=== PATIENT | male | born 1945 | race Caucasian/White ===

== ENCOUNTER → 2016-09-30 | Outpatient (CLI) | payer BC ==
[~2016-09-30] MED LIST: ACET-1138 PO; ASPEC81 PO; ATV1 PO; CLB200 PO; CYCL0.052 OP; ENAL10TA88 PO; KPP/750 PO; LACO100T PO; MULTTAB PO; OXYSR10 PO; POLY1SOL6 OP; RXC5 PO; SENNTAB23 PO; SIMV20TA2 PO; WHEAPOW13 PO
--- NOTE | 2016-09-30 16:26 | DIAGNOSTIC IMAGING REPORT ---
TWO VIEW CHEST CLINICAL HISTORY: Cough and fever. FINDINGS: PA and lateral chest radiographs are compared to study dated 04/17/2015. The cardiomediastinal silhouette is unremarkable. The lungs and pleural spaces are clear. There is no pneumothorax. The bony thorax appears intact. IMPRESSION: No active disease in the chest. Electronically signed by: Maxim Huerta M.D. 09/30/2016 4:25 PM Dictated Date/Time: 09/30/2016 4:24 PM
== END | disposition home or self-care (01) ==
LOC: C.RAD 16:09
PROVIDERS: ATTEND Physician Assistant
DX: R50.9 Fever, unspecified (principal)

== ENCOUNTER 2017-07-09 04:37 | Inpatient (IN) | payer BC, OTHER ==
[~2017-07-09] VITALS: Ht 170.2 cm; Wt 104.9 kg
[2017-07-09] MEDS ORDERED: SODIUM CHLORIDE 0.9% 1000ML 1,000 ML IV STA (05:03)
[2017-07-09 05:33] LABS: BASO % 0.1 %; BASO ABS # 0.01 K/uL (0-0.2); EOS ABS # 0.08 K/uL (0-0.5); HEMATOCRIT 43.5 % (42-52); HEMOGLOBIN 14.7 g/dL (14.0-18.0); IG# 0.01 K/uL (0.00-0.02); LYMPH % 9.3 %; LYMPH ABS # 0.77 K/uL (1.2-3.4); MEAN CELL VOLUME 88.8 fL (80-100); MEAN CORPUSCULAR HGB CONC 33.8 g/dl (32-36); MEAN PLATELET VOLUME 10.4 fL (7.4-10.4); MONO % 8.7 %; MONO ABS # 0.72 K/uL (0.11-0.59); NEUT % 80.8 %; NEUT ABS # 6.73 K/uL (1.4-6.5); PLATELET COUNT 136 K/uL (130-400); RED CELL DISTRIBUTION WIDTH SD 42.2 fL (36.4-46.3); WHITE BLOOD COUNT 8.32 K/uL (4.8-10.8)
[2017-07-09 05:37] LABS: INFLUENZA B ANTIGEN Neg for Influ B (NEG)
[2017-07-09] MEDS ORDERED: OSELTAMIVIR PHOSPHATE 75 MG CAP PO STA (05:39)
[2017-07-09] MEDS ORDERED: ALBUT/IPRATROP 3MG/0.5MG NEB 3 ML VIAL INH STA (05:39)
[2017-07-09 05:42] LABS: PTT PATIENT 29.5 SECONDS (21.0-31.0)
[2017-07-09 05:51] LABS: ALBUMIN 3.4 gm/dl (3.4-5.0); ALT/SGPT 18 U/L (12-78); AST/SGOT 21 U/L (15-37); BLOOD UREA NITROGEN 14 mg/dl (7-18); CALCIUM 8.5 mg/dl (8.5-10.1); CARBON DIOXIDE 28 mmol/L (21-32); CREATININE 0.94 mg/dl (0.60-1.40); GLUCOSE 111 mg/dl (70-99); LIPASE 130 U/L (73-393); POTASSIUM 3.7 mmol/L (3.5-5.1); SODIUM 139 mmol/L (136-145)
[2017-07-09] MEDS ORDERED: ASPI81TA28 PO (05:53)
[2017-07-09] MEDS ORDERED: CLON1TAB3 PO (05:53)
[2017-07-09] MEDS ORDERED: ENAL1TAB31 PO (05:54)
[2017-07-09] MEDS ORDERED: MULT-514 PO (05:55)
[2017-07-09] MEDS ORDERED: OMEG5CAP PO (05:55)
[2017-07-09] MEDS ORDERED: ATV/1 PO (05:55)
[2017-07-09] MEDS ORDERED: ESLI1TAB3 PO (05:56)
[2017-07-09 05:59] LABS: ALKALINE PHOSPHATASE 90 U/L (45-117); CKMB 0.7 ng/ml (0.5-3.6); TOTAL PROTEIN 7.1 gm/dl (6.4-8.2)
[2017-07-09] MEDS ORDERED: ACETAMINOPHEN 325 MG TAB PO PRN (06:00)
[2017-07-09] MEDS ORDERED: ONDANSETRON INJ 2 MG/ML 2 ML VIAL IV PRN (06:00)
[2017-07-09] MEDS ORDERED: LORAZEPAM 1 MG TAB PO PRN ×2 (06:00→18:30)
[2017-07-09] MEDS ORDERED: POLYETHYLENE (MIRALAX) 17 GM PACK PO PRN (06:00)
[2017-07-09] MEDS ORDERED: MAGNESIUM HYDROXIDE SUSP 30 ML UDC PO PRN (06:00)
[2017-07-09] MEDS ORDERED: ALUMINUM/MAGNESIUM/SIMETH (MAALOX MAX) 30 ML UDC PO PRN (06:00)
--- NOTE | 2017-07-09 06:10 | History and Physical ---
History & Physical Date & Time of Service: Jul 09, 2017 at 06:00 Chief Complaint: Cough,Fever Primary Care Physician: Pam Fernandez PA-C History of Present Illness Source: patient, hospital records 71 y/o M Hx HTN, HPL, OA, seizure disorder. Pt has had a fever and cough x 3 days. He had been exposed to the flu through a grandchild. He presented as he developed SOB. The pt was slightly hypoxic on arrival to the ER. Labs are notable for a (+) rapid flu. He denies CP, N/V, diarrhea or dysuria. Past Medical/Surgical History 1) HTN 2) HPL 3) Seizure disorder with aura 4) OA 5) TKR 6) Total shoulder replacement Family History Diabetes mellitus FHx: coronary artery disease Social History Smoking Status: Never Smoker Marital Status: Housing status: lives with family Occupational Status: employed Immunizations History of Influenza Vaccine: N/A Influenza Vaccine Date: Feb 22, 2010 History of Tetanus Vaccine?: Yes History of Pneumococcal: Yes Pneumococcal Date: Feb 23, 2009 History of Hepatitis B Vaccine: No Multi-Drug Resistant Organisms History of MDRO: Yes Type of MDRO: MRSA Allergies Coded Allergies: Phenytoin (Verified Allergy, Unknown, DRUG INDUCED HEPATITIS, 07/09/17) Valproic Acid (Verified Adverse Reaction, Severe, ELEVATED LIVER ENZYMES, 07/09/17) Home Medications Scheduled Aspirin (Aspirin Ec), 81 MG PO QPM Clonazepam (Klonopin), 0.5 MG PO BID Enalapril Maleate (Vasotec), 40 MG PO DAILY Eslicarbazepine Acetate (Aptiom), 600 MG PO DAILY Lacosamide (Vimpat), 300 MG PO BID Levetiracetam (Keppra), 2,250 MG PO BID Multiple Vitamins W/ Calcium (Multi-Day), 1 TAB PO DAILY [place]-3 Fatty Acids (Fish Oil 1200 mg), 1,200 MG PO DAILY Polyethylene Glycol-Propylene (Systane Ultra), 1 DROPS OP PRN Simvastatin (Zocor), 20 MG PO QPM Scheduled PRN Lorazepam (Ativan), 1 MG PO UD PRN for SEIZURE AURA Review of Systems Constitutional: + fever, + chills, + weakness, + fatigue Eyes: No worsening of vision ENT: No hearing loss, No unusual epistaxis, No nasal symptoms Respiratory: + cough, + sputum, + shortness of breath Cardiovascular: No chest pain, No orthopnea, No PND Abdomen: No pain, No nausea, No vomiting Musculoskeletal: No joint pain Genitourinary - Male: No hematuria, No dysuria Neurologic: No memory loss, No paralysis, No weakness Psychiatric: No depression symptoms Endocrine: + fatigue Hematologic / Lymphatic: No abnormal bleeding/bruising Integumentary: No rash Allergic / Immunologic: No environmental allergies Physical Exam Vital Signs Date Time Temp Pulse Resp B/P (MAP) Pulse Ox O2 Delivery O2 Flow Rate FiO2 07/09/17 05:10 96 Nasal Cannula 2.0 07/09/17 04:59 78 24 133/69 96 Nasal Cannula 2.0 07/09/17 04:58 77 07/09/17 04:57 Nasal Cannula 2.0 07/09/17 04:55 90 Room Air 07/09/17 04:40 37.9 82 20 131/68 88 Room Air General Appearance: WD/WN, no apparent distress Head: normocephalic Eyes: normal inspection ENT: normal ENT inspection Neck: supple, no JVD Respiratory/Chest: chest non-tender, lungs clear, normal breath sounds Cardiovascular: regular rate, rhythm, no edema, no gallop Abdomen/GI: normal bowel sounds, non tender, soft Back: normal inspection, no CVA tenderness Extremities/Musculoskelatal: normal inspection Neurologic/Psych: cold patcher II-XII nml as tested, no motor/sensory deficits, alert, oriented x 3 Skin: normal color Diagnostics Laboratory Results Results Past 24 Hours Test 07/09/17 05:00 07/09/17 05:10 07/09/17 05:15 07/09/17 05:17 Range/Units Influenza Type A Antigen POS for Influ A NEG Influenza Type B Antigen Neg for Influ B NEG White Blood Count 8.32 4.8-10.8 K/uL Red Blood Count 4.90 4.7-6.1 M/uL Hemoglobin 14.7 14.0-18.0 g/dL Hematocrit 43.5 42-52 % Mean Corpuscular Volume 88.8 80-100 fL Mean Corpuscular Hemoglobin 30.0 25-34 pg Mean Corpuscular Hemoglobin Concent 33.8 32-36 g/dl Platelet Count 136 130-400 K/uL Mean Platelet Volume 10.4 7.4-10.4 fL Neutrophils (%) (Auto) 80.8 % Lymphocytes (%) (Auto) 9.3 % Monocytes (%) (Auto) 8.7 % Eosinophils (%) (Auto) 1.0 % Basophils (%) (Auto) 0.1 % Neutrophils # (Auto) 6.73 1.4-6.5 K/uL Lymphocytes # (Auto) 0.77 1.2-3.4 K/uL Monocytes # (Auto) 0.72 0.11-0.59 K/uL Eosinophils # (Auto) 0.08 0-0.5 K/uL Basophils # (Auto) 0.01 0-0.2 K/uL RDW Standard Deviation 42.2 36.4-46.3 fL RDW Coefficient of Variation 13.0 11.5-14.5 % Immature Granulocyte % (Auto) 0.1 % Immature Granulocyte # (Auto) 0.01 0.00-0.02 K/uL Prothrombin Time 11.0 9.0-12.0 SECONDS Prothromb Time International Ratio 1.0 0.9-1.1 Activated Partial Thromboplast Time 29.5 21.0-31.0 SECONDS Partial Thromboplastin Ratio 1.1 Sodium Level 139 136-145 mmol/L Potassium Level 3.7 3.5-5.1 mmol/L Chloride Level 103 98-107 mmol/L Carbon Dioxide Level 28 21-32 mmol/L Anion Gap 8.0 3-11 mmol/L Blood Urea Nitrogen 14 7-18 mg/dl Creatinine 0.94 0.60-1.40 mg/dl Estimated GFR () 94.8 Estimated GFR (Non- 81.8 BUN/Creatinine Ratio 14.5 10-20 Random Glucose 111 70-99 mg/dl Calcium Level 8.5 8.5-10.1 mg/dl Magnesium Level 1.9 1.8-2.4 mg/dl Total Bilirubin 0.4 0.2-1 mg/dl Direct Bilirubin < 0.1 0-0.2 mg/dl Aspartate Amino Transf (AST/SGOT) 21 15-37 U/L Alanine Aminotransferase (ALT/SGPT) 18 12-78 U/L Alkaline Phosphatase 90 45-117 U/L Total Creatine Kinase 144 39-308 U/L Creatine Kinase MB 0.7 0.5-3.6 ng/ml Creatine Kinase MB Ratio 0.5 0-3.0 Troponin I < 0.015 0-0.045 ng/ml Total Protein 7.1 6.4-8.2 gm/dl Albumin 3.4 3.4-5.0 gm/dl Lipase 130 73-393 U/L Thyroid Stimulating Hormone (TSH) 1.010 0.300-4.500 uIu/ml Urine Color DK YELLOW Urine Appearance CLEAR CLEAR Urine pH 5.0 4.5-7.5 Urine Specific [place] 1.029 1.000-1.030 Urine Protein TRACE NEG Urine Glucose (UA) NEG NEG Urine Ketones TRACE NEG Urine Occult Blood NEG NEG Urine Nitrite NEG NEG Urine Bilirubin NEG NEG Urine Urobilinogen NEG NEG Urine Leukocyte Esterase NEG NEG Urine WBC (Auto) 1-5 0-5 /hpf Urine RBC (Auto) 0-4 0-4 /hpf Urine Hyaline Casts (Auto) 1-5 0-5 /lpf Urine Epithelial Cells (Auto) 5-10 0-5 /lpf Urine Bacteria (Auto) NEG NEG Bedside Lactic Acid Venous 0.66 0.90-1.70 mmol/L Microbiology Results 07/09/17 Blood Culture, Received Pending 07/09/17 Blood Culture, Received Pending 07/09/17 Urine Culture, Received Pending CXR normal Impression Assessment and Plan 71 y/o M Hx HTN, HPL, OA, seizure disorder. Pt has had a fever and cough x 3 days. He had been exposed to the flu through a grandchild. He presented as he developed SOB. The pt was slightly hypoxic on arrival to the ER. Labs are notable for a (+) rapid flu. He denies CP, N/V, diarrhea or dysuria. 1) Influenza - provided with Tamiflu, Nebs, 02 protocol, IVF. 2) HTN - cont Vasotec 3) HPL - cont Statin 4) Seizures - cont Vimpat, Etiom - the pt takes Lorazepam within 5 min of recognizing an aura Full code - Heparin prophylaxis Total time for this admit including review of labs, meds, records, imaging - discussion with pt and ER attending - 33 min Level of Care Med/Surg Resuscitation Status FULL RESUSCITATION VTE Prophylaxis VTE Risk Assessment Done? Y/N: Yes Risk Level: Moderate Given or contraindicated: Unfractionated heparin SQ
[2017-07-09] MEDS ORDERED: ARTIFICIAL TEARS OP SOLN OPB PRN (06:15)
[2017-07-09 06:30] VITALS: BP 121/70; PULSE 87; TEMP 37.1; O2SAT 95; Ht 170.2 cm; Wt 104.9 kg
--- NOTE | 2017-07-09 06:44 | EMERGENCY ROOM VISIT NOTE ---
History Report prepared by Filiberto: Shaniqua Vaz Under the Supervision of: Dr. Chema Lucero M.D. First contact with patient: 04:46 Chief Complaint: COUGH Stated Complaint: COUGH,FEVER History of Present Illness The patient is a 71 year old male who presents to the Emergency Room with complaints of persistent fevers that began 3 days ago, noting that he did not have any fevers all day yesterday. The patient patient states he has a persistent cough and denies wearing oxygen at home. His notes that the patient took Tylenol about 2 hours ago, which did not help relieve his symptoms. He notes that his grandchildren currently have the flu. The patient has a history of seizures and pneumonia. Pt denies LOC, headache, chills, diaphoresis, visual changes, neck pain, chest pain, nausea, vomiting, abdominal pain, back pain, melena, hematochezia, urinary symptoms, numbness, weakness, lymphadenopathy, rash, or other complaints. Source of History: patient, spouse/significant other () Onset: 3 days ago Position: other (global) Quality: other (fever) Timing: other (persistent) Associated Symptoms: + cough Review of Systems See HPI for pertinent positives and negatives. A total of ten systems were reviewed and were otherwise negative. Past Medical & Surgical Medical Problems: (1) encephalomalacia (2) Hyperlipidemia Nec/Nos (3) Hypertension Nos (4) Hypoxemia (5) Influenza A (6) Knee pain (7) Osteoarthros Nos-Unspec (8) Right knee DJD (9) Seizure Surgical Problems: (1) Knee Joint Replacement Status (2) Shoulder Joint Replacement Status Social History Problems: (1) S/P TKR (total knee replacement) Family History Diabetes mellitus FHx: coronary artery disease Social History Smoking Status: Never Smoker Marital Status: Housing Status: lives with family Occupation Status: employed Current/Historical Medications Scheduled Aspirin (Aspirin Ec), 81 MG PO QPM Clonazepam (Klonopin), 0.5 MG PO BID Enalapril Maleate (Vasotec), 40 MG PO DAILY Eslicarbazepine Acetate (Aptiom), 600 MG PO DAILY Lacosamide (Vimpat), 300 MG PO BID Levetiracetam (Keppra), 2,250 MG PO BID Multiple Vitamins W/ Calcium (Multi-Day), 1 TAB PO DAILY [place]-3 Fatty Acids (Fish Oil 1200 mg), 1,200 MG PO DAILY Polyethylene Glycol-Propylene (Systane Ultra), 1 DROPS OP PRN Simvastatin (Zocor), 20 MG PO QPM Scheduled PRN Lorazepam (Ativan), 1 MG PO UD PRN for SEIZURE AURA Allergies Coded Allergies: Phenytoin (Verified Allergy, Unknown, DRUG INDUCED HEPATITIS, 07/09/17) Valproic Acid (Verified Adverse Reaction, Severe, ELEVATED LIVER ENZYMES, 07/09/17) Physical Exam Vital Signs Date Time Temp Pulse Resp B/P (MAP) Pulse Ox O2 Delivery O2 Flow Rate FiO2 07/09/17 06:08 37.9 75 20 123/72 96 Nasal Cannula 2.0 07/09/17 05:10 96 Nasal Cannula 2.0 07/09/17 04:59 78 24 133/69 96 Nasal Cannula 2.0 07/09/17 04:58 77 07/09/17 04:57 Nasal Cannula 2.0 07/09/17 04:55 90 Room Air 07/09/17 04:40 37.9 82 20 131/68 88 Room Air Physical Exam GENERAL: Awake, alert, mildly ill-appearing, in no distress HENT: Normocephalic, atraumatic. Oropharynx unremarkable. EYES: Mildly erythematous conjunctiva. Sclera non-icteric. NECK: Supple. No nuchal rigidity. FROM. No masses. RESPIRATORY: Course breath sounds but otherwise clear, no wheezes or rales. CARDIAC: Normal rate. Normal rhythm. No murmurs. No rubs. Extremities warm and well perfused. Pulses equal. No JVD. GI: Soft, non-distended. No tenderness to palpation. No rebound or guarding. No masses. RECTAL: Deferred. MUSCULOSKELETAL: Atraumatic. Chest examination reveals no tenderness. The back is symmetrical on inspection without obvious abnormality. There is no CVA tenderness to palpation. No joint edema. LOWER EXTREMITIES: Calves are equal size bilaterally and non-tender. No edema. No discoloration. NEURO: Normal sensorium. No sensory or motor deficits noted. SKIN: No rash or jaundice noted. Medical Decision & Procedures ER Provider Diagnostic Interpretation: Radiology results as stated below per my review and radiologist interpretation: Chest x-ray. Findings: A chest x-ray was performed and revealed no pneumothorax , effusion, infiltrate, pulmonary edema, free air under the diaphragm, or wide mediastinum. Laboratory Results 07/09/17 05:10 Red Blood Count 4.90, Mean Corpuscular Volume 88.8, Mean Corpuscular Hemoglobin 30.0, Mean Corpuscular Hemoglobin Concent 33.8, Mean Platelet Volume 10.4, Neutrophils (%) (Auto) 80.8, Lymphocytes (%) (Auto) 9.3, Monocytes (%) (Auto) 8.7, Eosinophils (%) (Auto) 1.0, Basophils (%) (Auto) 0.1, Neutrophils # (Auto) 6.73, Lymphocytes # (Auto) 0.77, Monocytes # (Auto) 0.72, Eosinophils # (Auto) 0.08, Basophils # (Auto) 0.01 07/09/17 05:10 Test 07/09/17 05:00 07/09/17 05:10 07/09/17 05:15 07/09/17 05:17 Influenza Type A Antigen POS for Influ A (NEG) Influenza Type B Antigen Neg for Influ B (NEG) White Blood Count 8.32 K/uL (4.8-10.8) Red Blood Count 4.90 M/uL (4.7-6.1) Hemoglobin 14.7 g/dL (14.0-18.0) Hematocrit 43.5 % (42-52) Mean Corpuscular Volume 88.8 fL (80-100) Mean Corpuscular Hemoglobin 30.0 pg (25-34) Mean Corpuscular Hemoglobin Concent 33.8 g/dl (32-36) Platelet Count 136 K/uL (130-400) Mean Platelet Volume 10.4 fL (7.4-10.4) Neutrophils (%) (Auto) 80.8 % Lymphocytes (%) (Auto) 9.3 % Monocytes (%) (Auto) 8.7 % Eosinophils (%) (Auto) 1.0 % Basophils (%) (Auto) 0.1 % Neutrophils # (Auto) 6.73 K/uL (1.4-6.5) Lymphocytes # (Auto) 0.77 K/uL (1.2-3.4) Monocytes # (Auto) 0.72 K/uL (0.11-0.59) Eosinophils # (Auto) 0.08 K/uL (0-0.5) Basophils # (Auto) 0.01 K/uL (0-0.2) RDW Standard Deviation 42.2 fL (36.4-46.3) RDW Coefficient of Variation 13.0 % (11.5-14.5) Immature Granulocyte % (Auto) 0.1 % Immature Granulocyte # (Auto) 0.01 K/uL (0.00-0.02) Prothrombin Time 11.0 SECONDS (9.0-12.0) Prothromb Time International Ratio 1.0 (0.9-1.1) Activated Partial Thromboplast Time 29.5 SECONDS (21.0-31.0) Partial Thromboplastin Ratio 1.1 Anion Gap 8.0 mmol/L (3-11) Estimated GFR () 94.8 Estimated GFR (Non- 81.8 BUN/Creatinine Ratio 14.5 (10-20) Calcium Level 8.5 mg/dl (8.5-10.1) Magnesium Level 1.9 mg/dl (1.8-2.4) Total Bilirubin 0.4 mg/dl (0.2-1) Direct Bilirubin < 0.1 mg/dl (0-0.2) Aspartate Amino Transf (AST/SGOT) 21 U/L (15-37) Alanine Aminotransferase (ALT/SGPT) 18 U/L (12-78) Alkaline Phosphatase 90 U/L (45-117) Total Creatine Kinase 144 U/L (39-308) Creatine Kinase MB 0.7 ng/ml (0.5-3.6) Creatine Kinase MB Ratio 0.5 (0-3.0) Troponin I < 0.015 ng/ml (0-0.045) Total Protein 7.1 gm/dl (6.4-8.2) Albumin 3.4 gm/dl (3.4-5.0) Lipase 130 U/L (73-393) Thyroid Stimulating Hormone (TSH) 1.010 uIu/ml (0.300-4.500) Urine Color DK YELLOW Urine Appearance CLEAR (CLEAR) Urine pH 5.0 (4.5-7.5) Urine Specific [place] 1.029 (1.000-1.030) Urine Protein TRACE (NEG) Urine Glucose (UA) NEG (NEG) Urine Ketones TRACE (NEG) Urine Occult Blood NEG (NEG) Urine Nitrite NEG (NEG) Urine Bilirubin NEG (NEG) Urine Urobilinogen NEG (NEG) Urine Leukocyte Esterase NEG (NEG) Urine WBC (Auto) 1-5 /hpf (0-5) Urine RBC (Auto) 0-4 /hpf (0-4) Urine Hyaline Casts (Auto) 1-5 /lpf (0-5) Urine Epithelial Cells (Auto) 5-10 /lpf (0-5) Urine Bacteria (Auto) NEG (NEG) Bedside Lactic Acid Venous 0.66 mmol/L (0.90-1.70) Laboratory results reviewed by me Medications Administered Medications (Trade) Dose Ordered Sig/Mohit Route Start Time Stop Time Status Last Admin Dose Admin Sodium Chloride 1,000 ml @ 125 mls/hr Q8H STAT IV 07/09/17 05:03 07/09/17 13:02 07/09/17 05:25 125 MLS/HR Oseltamivir Phosphate (Tamiflu Cap) 75 mg NOW STAT PO 07/09/17 05:39 07/09/17 05:40 DC 07/09/17 05:54 75 MG Albuterol/ Ipratropium (Duoneb) 3 ml NOW STAT INH 07/09/17 05:39 07/09/17 05:40 DC 07/09/17 05:54 3 ML ECG Per My Interpretation Indication: other (hypoxia) Rate (beats per minute): 80 Rhythm: normal sinus Findings: Q waves (Inferior), no acute ischemic change, no ectopy ED Course 0451: The patient was evaluated in room B4. A complete history and physical exam was performed. 0503: Ordered Sodium Chloride 1000ml @ 125mls/hr IV. 0539: Ordered Duoneb 3ml INH and Tamiflu Cap 75mg PO. 0543: I reevaluated the patient, who was resting comfortably. 0646: Dr. Sullivan [facility] was notified of the patient's case. The patient will be evaluated for further treatment and disposition. 0652: I reevaluated the patient, who was resting and discussed test findings. The patient verbally agreed to the treatment plan. Medical Decision Triage Nursing notes reviewed. The patient's presentation and history were concerning for fever. Etiologies such as viral syndrome, influenza, pneumonia, urinary tract infection , sepsis, bacteremia, meningitis, as well as others were entertained. The patient was evaluated. He is requiring supplemental oxygen. He took Tylenol just before coming in. He was placed on normal saline hydration. Chest x-ray did not reveal any evidence of pneumonia. His CBC and chemistries were unremarkable. The patient did have a positive flu test. Lactate was negative. Cultures were done. He was given Tamiflu and a DuoNeb. Consultation was made with internal medicine due to his hypoxia. I gave my usual and customary discussion regarding this issue. The patient was evaluated in the Emergency Room for further management. Medication Reconcilliation Current Medication List: was personally reviewed by me Blood Pressure Screening Patient's blood pressure: Normal blood pressure Blood pressure disposition: Did not require urgent referral Consults Time Called: [phone] Consulting Physician: PAL Schulte Returned Call: [phone] PAL Schulte was notified of the patient's case. The patient will be evaluated for further treatment and disposition. Impression Primary Impression: Influenza A Additional Impression: Hypoxia Scribe Attestation The scribe's documentation has been prepared under my direction and personally reviewed by me in its entirety. I confirm that the note above accurately reflects all work, treatment, procedures, and medical decision making performed by me. Departure Information Dispostion Being Evaluated By Hospitalist Referrals Pam Fernandez PA-C (PCP) Forms HOME CARE DOCUMENTATION FORM, IMPORTANT VISIT INFORMATION Patient Instructions My [facility] Health Problem Qualifiers
--- NOTE | 2017-07-09 07:14 | DIAGNOSTIC IMAGING REPORT ---
SINGLE VIEW CHEST CLINICAL HISTORY: Generalized weakness. FINDINGS: An AP, portable, upright chest radiograph is compared to study dated 09/30/2016 and correlated with chest CT dated 09/26/2010. The examination is degraded by portable technique and patient rotation. The heart is top normal for projection. The lungs and pleural spaces are clear noting mild bibasilar atelectasis. No pneumothorax is seen. The bony thorax is grossly intact. IMPRESSION: No acute cardiopulmonary abnormality. Electronically signed by: Maxim Huerta M.D. 07/09/2017 7:12 AM Dictated Date/Time: 07/09/2017 7:11 AM
[2017-07-09] MEDS: ALBUT/IPRATROP 3MG/0.5MG NEB 3 ML VIAL INH SCH ×3 (07:27→19:16)
[2017-07-09 07:28] VITALS: PULSE 72; O2SAT 92
[2017-07-09] MEDS ORDERED: SODIUM CHLORIDE 0.9% 1000ML 1,000 ML IV SCH (07:30)
[2017-07-09 08:30] VITALS: O2SAT 92
[2017-07-09] MEDS: CLONAZEPAM 0.5 MG TAB PO SCH ×2 (09:32→21:27)
[2017-07-09] MEDS: LACOSAMIDE 50 MG TAB PO SCH ×2 (09:33→21:22)
[2017-07-09] MEDS: ENALAPRIL MALEATE 10 MG TAB PO SCH (09:33)
[2017-07-09] MEDS ORDERED: ESLI1TAB2 PO (09:33)
[2017-07-09] MEDS: OSELTAMIVIR PHOSPHATE 75 MG CAP PO SCH ×2 (09:34→21:22)
[2017-07-09] MEDS: HEPARIN SOD 5000 UNIT/0.5 ML CARP SQ SCH ×3 (09:42→21:26)
[2017-07-09] MEDS: KEPPRA 750 MG PO SCH ×2 (09:43→18:35)
[2017-07-09 14:29] VITALS: PULSE 67; O2SAT 93
--- NOTE | 2017-07-09 15:38 | Progress Note ---
Progress Note Date of Service Jul 09, 2017. Progress Note follow up visit from this morning 71 y/o M Hx HTN, HPL, OA, seizure disorder. Pt has had a fever and cough x 3 days. He had been exposed to the flu through a grandchild. He presented as he developed SOB. The pt was slightly hypoxic on arrival to the ER. Labs are notable for a (+) rapid flu. He denies CP, N/V, diarrhea or dysuria. 1) Influenza - titrated off of oxygen, breathing better still needs IV fluids likely d/c tomorrow 2) HTN - cont Vasotec 3) HPL - cont Statin 4) Seizures - cont Vimpat, Etiom - the pt takes Lorazepam within 5 min of recognizing an aura likely d/c in the morning
[2017-07-09 17:07] VITALS: BP 113/64; PULSE 75; TEMP 37.3; O2SAT 90
[2017-07-09] MEDS ORDERED: NURSING VERBAL MED ORDER ONE ×2 (18:30→21:15)
[2017-07-09 19:18] VITALS: PULSE 78; O2SAT 93
[2017-07-09] MEDS ORDERED: ASPIRIN 81 MG ECTAB PO SCH (21:00)
[2017-07-09] MEDS ORDERED: APTIOM PO SCH (21:00)
[2017-07-09] MEDS ORDERED: SIMVASTATIN 20 MG TAB PO SCH (21:00)
[2017-07-09] MEDS: SODIUM CHLORIDE 0.9% 1000ML 1,000 ML IV SCH (21:27)
[2017-07-10] VITALS: BP 106/61; PULSE 66; TEMP 37.5; O2SAT 93
[2017-07-10] MEDS: ALBUT/IPRATROP 3MG/0.5MG NEB 3 ML VIAL INH SCH ×2 (01:55→07:22)
[2017-07-10 02:09] VITALS: PULSE 68; O2SAT 94
[2017-07-10] MEDS: SODIUM CHLORIDE 0.9% 1000ML 1,000 ML IV SCH (05:49)
[2017-07-10] MEDS: HEPARIN SOD 5000 UNIT/0.5 ML CARP SQ SCH (05:52)
[2017-07-10 07:09] VITALS: PULSE 57; O2SAT 92
[2017-07-10 07:22] VITALS: BP 123/68; PULSE 66; TEMP 37.2; O2SAT 92
[2017-07-10] MEDS: OSELTAMIVIR PHOSPHATE 75 MG CAP PO SCH (07:46)
[2017-07-10] MEDS: KEPPRA 750 MG PO SCH (07:47)
[2017-07-10] MEDS: LACOSAMIDE 50 MG TAB PO SCH (07:47)
[2017-07-10 08:15] VITALS: O2SAT 92
[2017-07-10] MEDS: CLONAZEPAM 0.5 MG TAB PO SCH (08:53)
[2017-07-10] MEDS: ENALAPRIL MALEATE 10 MG TAB PO SCH (08:53)
[2017-07-10] MEDS ORDERED: TMF75 PO (09:34)
--- NOTE | 2017-07-10 09:37 | Discharge Instructions ---
Discharge Instructions Date of Service Jul 10, 2017. Admission Reason for Admission: Hypoxemia, Influenza A Discharge Discharge Diagnosis / Problem: Influenza A, acute hypoxic respiratory failure Discharge Goals Goal(s): Improve function, Improve disease control Activity Recommendations Activity Limitations: resume your previous activity . Instructions / Follow-Up Instructions / Follow-Up Medications: - TAMIFLU: take twice a day, 7 more doses, next dose is this evening Influenza A: get plenty of rest, stay well hydrated, take Tamiflu as prescribed , should be recovered in several days initially you had some hypoxia (low oxygen levels) but that resolved quickly FOLLOW UP - Pam FOSS in one week, call for appointment Current Hospital Diet Patient's current hospital diet: Regular Diet Discharge Diet Recommended Diet: Regular Diet Pending Studies Studies pending at discharge: no Medical Emergencies . Who to Call and When: Medical Emergencies: If at any time you feel your situation is an emergency, please call 911 immediately. . Non-Emergent Contact Non-Emergency issues call your: Primary Care Provider Call Non-Emergent contact if: you have a fever, you have any medication questions . . "Provider Documentation" section prepared by Salvador Curtis. . VTE Core Measure Inpt VTE Proph given/why not?: Unfractionated heparin SQ PA Drug Monitoring Program Search Results: no issues identified
[2017-07-10 10:42] VITALS: BP 123/68; PULSE 66; TEMP 37.2; O2SAT 92
[2017-07-10] MEDS ORDERED: ALBUT/IPRATROP 3MG/0.5MG NEB 3 ML VIAL INH PRN (15:00)
--- NOTE | 2017-07-11 07:56 | Discharge Summary ---
Discharge Summary Date of Service Jul 10, 2017. Discharge Summary Admission Date: Jul 09, 2017 at 05:52 Discharge Date: Jul 10, 2017 Discharge Disposition: Home Principal Diagnosis: Influenza A Problems/Secondary Diagnoses: Acute hypoxia due to influenza A Seizure disorder Immunizations: Have You Had Influenza Vaccine: N/A Influenza Vaccine Date: Feb 22, 2010 History of Tetanus Vaccine?: Yes History of Pneumococcal: Yes Pneumococcal Date: Feb 23, 2009 History of Hepatitis B Vaccine: No Procedures: none Consultations: none Medication Reconciliation New Medications: Oseltamivir Phosphate (Tamiflu) 75 Mg Cap 75 MG PO BID, #7 CAP 0 Refills Continued Medications: Aspirin (Aspirin Ec) 81 Mg Tab 81 MG PO QPM Clonazepam (Klonopin) 1 Mg Tab 0.5 MG PO BID 1/2 TABLET DOSE Enalapril Maleate (Vasotec) 20 Mg Tab 40 MG PO DAILY, 3 Refills 2 TAB DOSE Eslicarbazepine Acetate (Aptiom) 400 Mg Tab 400 MG PO HS Lacosamide (Vimpat) 100 Mg Tab 300 MG PO BID Levetiracetam (Keppra) 750 Mg Tab 2250 MG PO BID, TAB MUST BE BRAND NAME-PT WILL BRING OWN MED FROM HOME-PHARMACY REQUEST Lorazepam (Ativan) 1 Mg Tab 1 MG PO UD PRN for SEIZURE AURA, TAB Multiple Vitamins W/ Calcium (Multi-Day) 1 Tab Tab 1 TAB PO DAILY [place]-3 Fatty Acids (Fish Oil 1200 mg) 1 Cap Cap 1200 MG PO DAILY Polyethylene Glycol-Propylene (Systane Ultra) 1 Carmina Carmina 1 DROPS OP PRN, #15 ML 1 Refill Simvastatin (Zocor) 20 Mg Tab 20 MG PO QPM, TAB Discharge Exam Patient feeling well, breathing room air for almost 24 hours, good rest, IV fluids all night. Eating and drinking well on day of discharge, felt ready to go home. Review of Systems: Constitutional: + weakness, No fever, No chills, No sweats, No weight loss, No fatigue, No problem reported Eyes: No worsening of vision, No eye pain, No redness, No discharge, No diplopia, No problem reported ENT: No hearing loss, No unusual epistaxis, No nasal symptoms, No sore throat, No tinnitus, No dental problems, No trouble swallowing, No problem reported Respiratory: No cough, No sputum, No wheezing, No shortness of breath, No dyspnea on exertion, No dyspnea at rest, No hemoptysis, No problem reported Cardiovascular: No chest pain, No orthopnea, No PND, No edema, No claudication, No palpitations, No problem reported Abdomen: No pain, No nausea, No vomiting, No diarrhea, No constipation, No GI bleeding, No problem reported Musculoskeletal: No joint pain, No muscle pain, No swelling, No calf pain, No problem reported Genitourinary - Male: No hematuria, No dysuria, No urinary frequency, No urinary urgency Neurologic: No memory loss, No paralysis, No weakness, No numbness/tingling , No vertigo, No balance problems, No problem reported Psychiatric: No depression symptoms, No anhedonism, No anxiety, No insomnia , No substance abuse, No problem reported Endocrine: No fatigue, No excessive thirst, No excessive urination, No problem reported Hematologic / Lymphatic: No abnormal bleeding/bruising, No clotting problems , No swollen lymph nodes, No night sweats, No problem reported Integumentary: No rash, No itch, No new/changing skin lesions, No color change, No bleeding, No problem reported Physical Exam: General Appearance: WD/WN, no apparent distress Eyes: normal inspection, EOMI, sclerae normal ENT: normal ENT inspection, hearing grossly normal, pharynx normal Neck: supple, no adenopathy, no JVD, trachea midline Respiratory/Chest: chest non-tender, lungs clear, normal breath sounds, no respiratory distress, no accessory muscle use Cardiovascular: regular rate, rhythm, no edema, no gallop, no JVD, no murmur , normal peripheral pulses Abdomen / GI: normal bowel sounds, non tender, soft, no organomegaly Extremities: normal inspection, no calf tenderness, normal capillary refill , no pedal edema, normal range of motion, pelvis stable Neurologic/Psychiatric: tax consultant II-XII nml as tested, no motor/sensory deficits , alert, normal mood/affect, normal reflexes, oriented x 3 Skin: normal color, warm/dry, no rash Hospital Course 71 y/o M Hx HTN, HPL, OA, seizure disorder. Pt has had a fever and cough x 3 days. He had been exposed to the flu through a grandchild. He presented as he developed SOB. The pt was slightly hypoxic on arrival to the ER. Labs are notable for a (+) rapid flu. He denies CP, N/V, diarrhea or dysuria. 1) Influenza A with acute hypoxia- titrated off of oxygen, breathing better IV fluids for over 24 hours, now well hydrated finish course of Tamiflu at home follow up with PCP next week 2) HTN - cont Vasotec 3) HPL - cont Statin 4) Seizures - cont Vimpat, Etiom patient had some shaking spells in the evening on 07/09 but no true seizure RN gave him Ativan and he calmed down d/c to home Total Time Spent: Greater than 30 minutes This includes examination of the patient, discharge planning, medication reconciliation, and communication with other providers. Discharge Instructions Please refer to the electronic Patient Visit Report (Discharge Instructions) for additional information. Follow-Up Pam Fernandez PA-C Additional Copies To Pam Fernandez PA-C
== END 2017-07-10 12:15 | disposition home or self-care (01) | DRG 195 ==
LOC: C.EDB 04:38 → C.MS2W 05:52 → ENRESERV 06:07
PROVIDERS: ADMIT Internal Medicine; ATTEND Internal Medicine
DX: J10.1 Influenza due to other identified influenza virus with other respiratory manifestations (principal); R09.02 Hypoxemia; G40.909 Epilepsy, unspecified, not intractable, without status epilepticus; I10 Essential (primary) hypertension; E78.5 Hyperlipidemia, unspecified; M19.90 Unspecified osteoarthritis, unspecified site; Z96.659 Presence of unspecified artificial knee joint; Z96.619 Presence of unspecified artificial shoulder joint; Z86.14 Personal history of Methicillin resistant Staphylococcus aureus infection; Z79.82 Long term (current) use of aspirin; Z79.899 Other long term (current) drug therapy; Z88.8 Allergy status to other drugs, medicaments and biological substances